=== PATIENT | male | born 1950 | race Two or more races ===

== ENCOUNTER 2022-06-14 06:37 | Day surgery (SDC) | payer OTHER ==
[~2022-06-14] VITALS: Ht 160 cm; Wt 78.9 kg
[~2022-06-14 06:37] MED LIST: HYDR-4072 PO; LEVO25TA6 PO; PANT40TA2 PO; TRAZ100T3 PO
[2022-06-14] MEDS ORDERED: CIPROFLOXACIN 400MG/200ML 200 ML IV ONE (07:00)
[2022-06-14] MEDS ORDERED: MIDAZOLAM HCL 2MG/2ML 2ml VIAL (1mg/ml) ONE (07:36)
[2022-06-14] MEDS ORDERED: fentaNYL CITRATE 100 MCG/2 ML VL ONE ×2 (07:36→08:09)
[2022-06-14] MEDS ORDERED: ONDANSETRON HCL 4 MG/2 ML VIAL ONE (07:49)
[2022-06-14] MEDS ORDERED: LIDOCAINE 2% (LOCAL ANESTH.) PF 5ml SDV ONE (07:49)
[2022-06-14] MEDS ORDERED: PROPOFOL 10 MG/ML 20 ML IV ONE (07:50)
[2022-06-14] MEDS ORDERED: HYDROmorphone HCL 2 MG/ML VL/or syr IV PRN ×2 (08:15)
[2022-06-14] MEDS ORDERED: ONDANSETRON HCL 4 MG/2 ML VIAL IV PRN (08:15)
[2022-06-14 09:00] VITALS: BP 151/90
== END 2022-06-14 09:19 | disposition home or self-care (01) ==
LOC: SUR 06:37
PROVIDERS: ATTEND Urology
DX: N39.3 Stress incontinence (female) (male) (principal); N36.42 Intrinsic sphincter deficiency (ISD); E03.9 Hypothyroidism, unspecified; K21.9 Gastro-esophageal reflux disease without esophagitis; G47.00 Insomnia, unspecified; Z98.890 Other specified postprocedural states; Z79.899 Other long term (current) drug therapy; Z88.2 Allergy status to sulfonamides; Z20.822 Contact with and (suspected) exposure to COVID-19
CPT/HCPCS: 51715; 72170; 76000; J0744; J2001; J2250; J2704; J3010; L8606; U0003; J2405